=== PATIENT | female | born 1950 | race Caucasian/White ===

== ENCOUNTER → 2017-06-15 | Outpatient (CLI) | payer MEDICARE, OTHER | END | disposition home or self-care (01) | LOC: RAD 15:45 | PROVIDERS: ATTEND Family Medicine | DX: S72.002A Fracture of unspecified part of neck of left femur, initial encounter for closed fracture (principal); M79.605 Pain in left leg; R60.0 Localized edema; X58.XXXA Exposure to other specified factors, initial encounter; Y93.89 Activity, other specified; Y92.89 Other specified places as the place of occurrence of the external cause; Y99.8 Other external cause status ==

== ENCOUNTER → 2017-07-24 | Outpatient (CLI) | payer MEDICARE, OTHER | END | disposition home or self-care (01) | LOC: CFH 12:20 | PROVIDERS: ATTEND Family Medicine | DX: Z12.31 Encounter for screening mammogram for malignant neoplasm of breast (principal); Z13.820 Encounter for screening for osteoporosis; Z78.0 Asymptomatic menopausal state | CPT/HCPCS: 77080; 77067 ==

== ENCOUNTER → 2018-08-10 | Outpatient (CLI) | payer MEDICARE, OTHER | END | disposition home or self-care (01) | LOC: CFH 10:27 | PROVIDERS: ATTEND Family Medicine | DX: Z12.31 Encounter for screening mammogram for malignant neoplasm of breast (principal); M81.0 Age-related osteoporosis without current pathological fracture; N95.9 Unspecified menopausal and perimenopausal disorder; S72.002D Fracture of unspecified part of neck of left femur, subsequent encounter for closed fracture with routine healing; X58.XXXD Exposure to other specified factors, subsequent encounter | CPT/HCPCS: 77063; 77080; 77067 ==

== ENCOUNTER → 2019-11-08 | Outpatient (CLI) | payer MEDICARE, OTHER ==
[2019-11-08 13:08] LABS: BASOPHILS # (AUTO) 0.06 x10^3/uL (0-0.1); BASOPHILS % (AUTO) 1 % (0-1); EOSINOPHILS # (AUTO) 0.08 x10^3/uL (0-0.4); EOSINOPHILS % (AUTO) 1 % (1-7); LYMPHOCYTES % (AUTO) 20 % (22-44); MD NO; MEAN CORPUSCULAR HEMOGLOBIN 31.8 pg (27.0-34.8); MEAN CORPUSCULAR VOLUME 96.5 fL (80-100); MEAN PLATELET VOLUME 8.1 fL (7.4-10.4); MONOCYTES # (AUTO) 0.78 x10^3/uL (0.2-0.8); MONOCYTES % (AUTO) 9 % (2-9); NEUTROPHILS # (AUTO) 6.11 x10^3/uL (1.8-6.8); NEUTROPHILS % (AUTO) 70 % (42-75); PLATELET COUNT 243 x10^3/uL (130-400); RED CELL DISTRIBUTION WIDTH 13.5 % (9.6-15.2)
[2019-11-08 13:15] LABS: CHLORIDE 100 mmol/L (98-107)
[2019-11-08 13:38] LABS: ALANINE AMINOTRANSFERASE 26 U/L (12-78); ALBUMIN 4.3 g/dL (3.4-5.0); ALKALINE PHOSPHATASE 81 U/L (45-117); ANION GAP 11 mmol/L (5-15); CALCIUM 9.3 mg/dL (8.5-10.1); CREATININE 0.68 mg/dL (0.55-1.02); TOTAL PROTEIN 8.1 g/dL (6.4-8.2); TRIGLYCERIDES 93 mg/dL (50-200)
[2019-11-08 13:39] LABS: CHOL/HDL RATIO 2.2; CHOLESTEROL, TOTAL 166 mg/dL (140-239); HDL CHOL % 45 % (28-40); HDL CHOLESTEROL (DIRECT) 74 mg/dL (40-60); LDL CHOLESTEROL,CALCULATED 73 mg/dL (54-169); VLDL CHOLESTEROL 19 mg/dL (0-25)
== END | disposition home or self-care (01) ==
LOC: CFH 10:03
PROVIDERS: ATTEND Family Medicine
DX: Z12.31 Encounter for screening mammogram for malignant neoplasm of breast (principal); I10 Essential (primary) hypertension; E78.5 Hyperlipidemia, unspecified
CPT/HCPCS: 36415; 77063; 77067; 80053; 80061; 84443; 85025

== ENCOUNTER → 2020-12-10 | Outpatient (CLI) | payer MEDICARE, OTHER | END | disposition home or self-care (01) | LOC: CFH 12:00 | PROVIDERS: ATTEND Family Medicine | DX: Z12.31 Encounter for screening mammogram for malignant neoplasm of breast (principal) | CPT/HCPCS: 77063; 77067 ==